=== PATIENT | female | born 1935 | race Caucasian/White ===

== ENCOUNTER 2019-01-16 07:50 | Day surgery (SDC) | payer MEDICARE ==
[~2019-01-16] VITALS: Ht 162.6 cm; Wt 42.7 kg
[2019-01-16] MEDS ORDERED: LACTATED RINGERS 1,000 ML IV SCH (08:45)
[2019-01-16 08:47] VITALS: BP 143/86
[2019-01-16] MEDS ORDERED: CHLORHEXIDINE 15 ML UDC ONE (09:34)
== END 2019-01-16 11:37 | disposition home or self-care (01) ==
LOC: OUT 07:50
PROVIDERS: ATTEND Internal Medicine Gastroenterology
DX: C25.0 Malignant neoplasm of head of pancreas (principal); K83.1 Obstruction of bile duct; K29.50 Unspecified chronic gastritis without bleeding; K31.5 Obstruction of duodenum; I51.7 Cardiomegaly; Z98.890 Other specified postprocedural states
CPT/HCPCS: 88305; 93005